=== PATIENT | male | born 1975 | race Native Hawaiian/Other Pacific Islander ===

== ENCOUNTER 2019-02-01 19:39 | Inpatient (IN) | payer MEDICAID, OTHER ==
[~2019-02-01] VITALS: Ht 170.2 cm; Wt 70.8 kg
--- NOTE | 2019-02-01 19:50 | NUR ---
PT BIBSELF C/O SOB, WORSE WHILE GOING UP THE STAIRS. PT O2 SAT 99% ON ROOM AIR. DENIES CP, DIZZINESS, HEADACHE, COUGH. PT AAOX4. RESPIRATIONS EVEN AND UNLABORED. SKIN WARM AND INTACT. NO ACUTE DISTRESS NOTED AT THIS TIME. PLACED ON MONITOR, WILL CONTINUE TO MONITOR
--- NOTE | 2019-02-01 20:00 | NUR ---
ER PA AT BEDSIDE FOR EVALUATION
--- NOTE | 2019-02-01 20:07 | NUR ---
SOLUTIONS CONSULTANT AT BEDSIDE FOR BLOOD DRAW
--- NOTE | 2019-02-01 20:18 | NUR ---
RADIOLOGY AT BEDSIDE FOR CXR
[2019-02-01 20:24] LABS: BASOPHILS # (AUTO) 0.1 /CMM (0.0-0.2); BASOPHILS % (AUTO) 1.4 % (0.0-2.0); LYMPHOCYTES # (AUTO) 0.7 /CMM (0.8-4.8); LYMPHOCYTES % (AUTO) 15.6 % (20.0-44.0); MEAN CORPUSCULAR HGB CONC 29 g/dl (31.0-36.0); MEAN CORPUSCULAR VOLUME 63 fL (80-96); MONOCYTES # (AUTO) 0.5 /CMM (0.1-1.30); MONOCYTES % (AUTO) 10.6 % (2.0-12.0); NEUTROPHILS # (AUTO) 3.2 /CMM (1.8-8.9); NEUTROPHILS % (AUTO) 67.4 % (43.0-81.0); PLATELET COUNT (AUTO) 290 /CMM (150-450); RED BLOOD CELL COUNT(AUTO) 2.94 MIL/uL (4.5-6.0); WHITE BLOOD COUNT (AUTO) 4.8 K/uL (4.3-11.0)
[2019-02-01 20:27] LABS: HEMATOCRIT 19 % (39-51); HEMOGLOBIN 5.4 g/dL (13.5-17.5)
[2019-02-01] MEDS ORDERED: IV NS 0.9% 1,000 ML BAG IV ONE (20:30)
[2019-02-01 20:47] LABS: CALCIUM, SERUM 7.9 mg/dL (8.5-10.1); CARBON DIOXIDE 24 mmol/L (21-32); CHLORIDE 105 mmol/L (98-107); CREATININE 0.9 mg/dL (0.6-1.3); GLUCOSE 125 mg/dL (74-106); POTASSIUM 3.5 mmol/L (3.5-5.1); SODIUM SERUM 137 mmol/L (136-145); UREA NITROGEN, BLOOD 9 mg/dL (7-18)
[2019-02-01 20:53] LABS: OCCULT BLOOD STOOL NEGATIVE (NEGATIVE)
[2019-02-01 20:59] LABS: EOSINOPHILS % (MANUAL) 4 % (0-4); LYMPHOCYTES % (MANUAL) 15 % (16-48); MONOCYTES % (MANUAL) 9 % (0-11.0); NEUTROPHILS % (MANUAL) 71 (42-76); REACTIVE LYMPHOCYTES 1 % (0-0)
[2019-02-01 21:00] LABS: B-TYPE NATRIURETIC PEPTIDE 45 PG/ML (0-125)
--- NOTE | 2019-02-01 22:09 | NUR ---
CALLED NURSING SUP FOR BED.
--- NOTE | 2019-02-01 22:22 | NUR ---
REPORT GIVEN TO RAJ EVANS.
[2019-02-01 23:00] VITALS: BP 145/95
[2019-02-01] MEDS ORDERED: ACETAMINOPHEN 325 MG TABLET PO PRN (23:00)
[2019-02-01] MEDS ORDERED: HYDROCODONE/APAP 5/325MG 1 EACH TABLET PO PRN (23:00)
[2019-02-01] MEDS ORDERED: MAGNESIUM HYDROXIDE 30 ML UDC PO PRN (23:00)
[2019-02-01] MEDS ORDERED: ONDANSETRON HCL/PF 4 MG/2 ML VIAL IVP PRN (23:00)
[2019-02-01] MEDS ORDERED: ZOLPIDEM TARTRATE 5 MG TABLET PO PRN (23:00)
[2019-02-01] MEDS ORDERED: Z GUARD REMEDY 2 OZ OINT TP PRN (23:00)
[2019-02-01] MEDS ORDERED: IV NS 0.9% 1,000 ML IV PRN (23:00)
--- NOTE | 2019-02-01 23:05 | NUR ---
PT TRANSFERRED PER ACLS PROTOCOL
--- NOTE | 2019-02-01 23:15 | NUR ---
ANESTHESIA DIRECTOR NOTE PATIENT RECEIVED FROM ER IN BED WITH FAMILY AT BED AT BEDSIDE. PATIENT IN BED A/P X 4 NO OUTWARD S/S OF DISTRESS. PATIENT DENIES CHEST PAIN, SOB, . PATIENT C/O MINOR FATIGUE. PATIENT ABLE TO AMBULATE TO BED GAIT STEADY. PATIENT HR SR ON THE MONITOR IN THE 90'S. PATIENT POC DISCUSSED WITH PATIENT AND GOALS DISCUSSED. CONSENT GIVEN TO PATIENT FOR BLOOD TRANSFUSION CONSENT SIGNED BY MILE CAMPUZANO AND PATIENT. CALL LIGHT INSTRUCTIONS GIVEN TO PATIENT, PATIENT VERBALIZE UNDERSTANDING. SAFETY PRECAUTIONS IN PLACE RN WILL CONTINUE TO JOJO
[2019-02-02] VITALS (16 sets, daily range): BP systolic 115–156; BP diastolic 69–94
--- NOTE | 2019-02-02 | NUR ---
BIOFUELS PROCESSING TECHNICIAN NOTE WHEN CONFIRMING PATIENT BLOOD TYPE PATIENT, STATES HE IS B NEGATIVE PER [employer] HX, CALLED BLOOD BANK TO CONFIRM TEST RESULTS, AND STATES "HE IS A VERY CLEAR B POS" PER PREVIOUS TYPE AND SCREEN RESULTS FROM ER . MILE JACKSON NOTIFIED AND BLOOD TRANSFUSION TO RESUME, PATIENT STATES OK
--- NOTE | 2019-02-02 00:16 | NUR ---
HISTORICAL SOCIETY DIRECTOR NOTE PATIENT TRANSFUSION STARTED V/S TAKEN RN WILL CONTINUE TO MONITOR.
[2019-02-02 00:19] LABS: HEMOGLOBIN 5.2 g/dL (13.5-17.5)
[2019-02-02 00:51] LABS: IRON, SERUM 12 ug/dl (50-175); TOTAL IRON BINDING CAPACITY 456 ug/dl (250-450)
--- NOTE | 2019-02-02 00:52 | NUR ---
BRAKE REPAIR MECHANIC NOTE NO TRANSFUSION REACTION NOTED AT THIS TIME RN WILL CONTINUE TO MONITOR.
[2019-02-02 06:45] LABS: BASOPHILS % (AUTO) 0.9 % (0.0-2.0); EOSINOPHILS % (AUTO) 4.5 % (0.0-6.0); HEMATOCRIT 22 % (39-51); LYMPHOCYTES # (AUTO) 0.5 /CMM (0.8-4.8); LYMPHOCYTES % (AUTO) 12.1 % (20.0-44.0); MEAN CORPUSCULAR HGB CONC 30 g/dl (31.0-36.0); MEAN CORPUSCULAR VOLUME 67 fL (80-96); MONOCYTES # (AUTO) 0.6 /CMM (0.1-1.30); MONOCYTES % (AUTO) 14.2 % (2.0-12.0); NEUTROPHILS # (AUTO) 2.8 /CMM (1.8-8.9); NEUTROPHILS % (AUTO) 68.3 % (43.0-81.0); PLATELET COUNT (AUTO) 241 /CMM (150-450); RED BLOOD CELL COUNT(AUTO) 3.22 MIL/uL (4.5-6.0); WHITE BLOOD COUNT (AUTO) 4.1 K/uL (4.3-11.0)
[2019-02-02 06:49] LABS: HEMOGLOBIN 6.4 g/dL (13.5-17.5)
--- NOTE | 2019-02-02 06:52 | NUR ---
MS RN NOTE CRITICAL LAB REPORTED, MILE CAMPUZANO NOTIFIED, NO RESPONSE YET, WILL ENDORSE TO AM SHIFT TO FOLLOW UP WITH AM .
[2019-02-02 06:58] LABS: CALCIUM, SERUM 7.8 mg/dL (8.5-10.1); CREATININE 0.8 mg/dL (0.6-1.3); PHOSPHORUS 3.5 mg/dL (2.5-4.9); POTASSIUM 3.8 mmol/L (3.5-5.1)
[2019-02-02 07:34] LABS: EOSINOPHILS % (MANUAL) 3 % (0-4); LYMPHOCYTES % (MANUAL) 15 % (16-48); MONOCYTES % (MANUAL) 12 % (0-11.0); NEUTROPHILS % (MANUAL) 70 (42-76)
--- NOTE | 2019-02-02 08:01 | NUR ---
RN OPENING NOTES PT IS ASLEEP IN BED. RECEIVED REPORT FROM GLASS EDGER RN. CONTACTED MD ABOUT CRITICAL VALUES AWAITING ORDERS. PT IS STABLE WITH EQUAL CHEST RISE BILATERALLY AND NO PAIN OBSERVED AT PRESENT MOMENT. BED IS LOCKED AND IN LOWEST POSITION WITH CALL LIGHT IN REACH WILL CONTINUE TO MONITOR.
--- NOTE | 2019-02-02 08:20 | NUR ---
RECEIVED ORDERS AND CARRIED THEM OUT.
--- NOTE | 2019-02-02 13:19 | NUR ---
PT FINISHED BLOOD TRANSFUSION DENIES ANY SOB OR PAIN. VITALS WNL. WILL CONTINUE TO MONITOR.
[2019-02-02 18:40] LABS: HEMOGLOBIN 7.8 g/dL (13.5-17.5)
--- NOTE | 2019-02-02 19:18 | NUR ---
RN CLOSING NOTES PT RESTING IN BED. DENIES PAIN OR SOB AT PRESENT MOMENT. PT IS A&OX4. PT HAS IV 18 GAUGE SL IN LAC. BED IS LOCKED AND IN LOWEST POSITION WITH CALL LIGHT IN REACH WILL ENDORSE ANABEL TO CRIMINAL INTELLIGENCE ANALYST RN.
--- NOTE | 2019-02-02 19:40 | NUR ---
RN MS OPENING NOTES, PATIENT IS ASLEEP IN BED, BUT EASILY AROUSABLE TO VERBAL STIMULI, A/OX4 ABLE TO VERBALIZED NEEDS AND CONCERNS, AT ROOM AIR BREATHING EVEN AND UNLABORED, NO SOB/ACUTE DISTRESS NOTED AT THIS TIME, DENIES ANY PAIN/DISCOMFORT AT THIS TIME, LEFT AC 18G IV ACCESS PATENT AND INTACT S/L, BED LOCKED AND IN LOWEST POSITION, CALL LIGHT W/I REACH WILL CONTINUE TO MONITOR CLOSELY.
[2019-02-02 21:19] LABS: APPEARANCE,URINE CLEAR (CLEAR); BILIRUBIN,URINE NEGATIVE (NEGATIVE); BLOOD, URINE NEGATIVE Ery/uL (NEGATIVE); COLOR,URINE YELLOW (YELLOW); KETONES,URINE NEGATIVE (NEGATIVE); LEUKOCYTE ESTERASE ,URINE NEGATIVE (NEGATIVE); NITRITE, URINE NEGATIVE (NEGATIVE); PH,URINE 7.5 (5.0-8.0); PROTEIN,URINE NEGATIVE (NEGATIVE); UGLUCOSE NEGATIVE (NEGATIVE); UROBILINOGEN,URINE 0.2 EU/dL (0.2)
[2019-02-03] VITALS: BP 143/82
[2019-02-03 04:00] VITALS: BP 130/79
[2019-02-03 06:26] LABS: BASOPHILS # (AUTO) 0.1 /CMM (0.0-0.2); BASOPHILS % (AUTO) 1.4 % (0.0-2.0); EOSINOPHILS % (AUTO) 4.5 % (0.0-6.0); HEMATOCRIT 26 % (39-51); HEMOGLOBIN 8.2 g/dL (13.5-17.5); LYMPHOCYTES # (AUTO) 0.8 /CMM (0.8-4.8); LYMPHOCYTES % (AUTO) 20.3 % (20.0-44.0); MEAN CORPUSCULAR HGB CONC 31 g/dl (31.0-36.0); MEAN CORPUSCULAR VOLUME 68 fL (80-96); MONOCYTES # (AUTO) 0.7 /CMM (0.1-1.30); MONOCYTES % (AUTO) 16.2 % (2.0-12.0); NEUTROPHILS # (AUTO) 2.3 /CMM (1.8-8.9); NEUTROPHILS % (AUTO) 57.6 % (43.0-81.0); PLATELET COUNT (AUTO) 244 /CMM (150-450); RED BLOOD CELL COUNT(AUTO) 3.83 MIL/uL (4.5-6.0)
[2019-02-03 06:48] LABS: ALBUMIN 3.1 g/dL (3.4-5.0); BILIRUBIN,TOTAL 0.3 mg/dL (0.2-1.0); CALCIUM, SERUM 8.1 mg/dL (8.5-10.1); CREATININE 0.9 mg/dL (0.6-1.3); POTASSIUM 3.7 mmol/L (3.5-5.1)
--- NOTE | 2019-02-03 06:56 | NUR ---
RN MS CLOSING NOTES, PATIENT SLEEPING AT THIS TIME, NO SOB/ACUTE DISTRESS NOTED, NO SIGNIFICANT CHANGE IN CONDITION DURING THE NIGHT, WILL ENDORSE CONTINUITY OF CARE TO ONCOMING NURSE.
--- NOTE | 2019-02-03 07:58 | NUR ---
MS RN OPENING NOTES RECEIVED PT LAYING IN BED W/ HOB KEPT ELEVATED. PT IS A/O X4, AFEBRILE. RESPIRATIONS ARE EVEN AND UNLABORED, NOT IN ANY ACUTE DISTRESS NOTED. PT DENIES ANY PAIN AT THIS TIME, NO C/O SOB, N/V. IV SITE TO LAC INTACT, NO INFILTRATION NOTED. DRESSING KEPT CLEAN AND DRY. SAFETY MEASURES ARE IN PLACE. INSTRUCTED PT TO USE CALL LIGHT WHEN ASSISTANCE IS NEEDED, CALL LIGHT IS LEFT WITHIN REACH. WILL MONITOR THROUGHOUT SHIFT FOR CONTINUITY OF CARE.
[2019-02-03 08:00] VITALS: BP 131/77
[2019-02-03 08:54] LABS: EOSINOPHILS % (MANUAL) 6 % (0-4); LYMPHOCYTES % (MANUAL) 20 % (16-48); MONOCYTES % (MANUAL) 15 % (0-11.0); NEUTROPHILS % (MANUAL) 59 (42-76)
[2019-02-03] MEDS ORDERED: SOD FERRIC GLUC 125 MG in IV NS 0.9% 100 ML IV SCH (14:00)
--- NOTE | 2019-02-03 14:09 | NUR ---
MS RN NOTES-- PT ABLE TO MAKE NEEDS KNOWN. NEEDS MET AND ANTICIPATED. PT DOES NOT APPEAR TO BE IN ANY ACUTE DISTRESS. SAFETY MEASURES ARE IN PLACE. CALL LIGHT IS LEFT WITHIN REACH. WILL CONTINUE TO MONITOR.
[2019-02-03 16:00] VITALS: BP 136/90
--- NOTE | 2019-02-03 18:30 | NUR ---
MS RN CLOSING NOTES ALL DUE MEDS GIVEN, NEEDS MET AND RENDERED. PT IS A/O X4, AFEBRILE. RESPIRATIONS ARE EVEN AND UNLABORED, NOT IN ANY ACUTE DISTRESS NOTED. DENIES ANY PAIN AT THIS TIME, NO C/O SOB, N/V. IV SITE TO LAC INTACT, NO INFILTRATION NOTED DRESSING KEPT CLEAN AND DRY. SAFETY MEASURES ARE IN PLACE. REMINDED PT TO USE CALL LIGHT WHEN ASSISTANCE IS NEEDED, CALL LIGHT IS LEFT WITHIN REACH. WILL ENDORSE TO NEXT SHIFT FOR CONTINUITY OF CARE.
[2019-02-03 20:00] VITALS: BP 143/97
--- NOTE | 2019-02-04 00:15 | NUR ---
RN NOTES RECEIVED REPORT FROM PREVIOUS RN FOR ANABEL. PATIENT SLEEPING & EASILY AROUSABLE TO NAME. A/O X4. DENIES ANY PAIN OR DISCOMFORT @ THIS TIME. INSTRUCTED TO CALL FOR ASSISTANCE.
[2019-02-04 04:00] VITALS: BP 151/109
[2019-02-04 06:37] LABS: BASOPHILS # (AUTO) 0.1 /CMM (0.0-0.2); BASOPHILS % (AUTO) 1.1 % (0.0-2.0); EOSINOPHILS % (AUTO) 4.1 % (0.0-6.0); HEMATOCRIT 30 % (39-51); HEMOGLOBIN 9.1 g/dL (13.5-17.5); LYMPHOCYTES % (AUTO) 16.3 % (20.0-44.0); MEAN CORPUSCULAR HGB CONC 31 g/dl (31.0-36.0); MEAN CORPUSCULAR VOLUME 70 fL (80-96); MONOCYTES # (AUTO) 0.8 /CMM (0.1-1.30); MONOCYTES % (AUTO) 12.9 % (2.0-12.0); NEUTROPHILS # (AUTO) 3.8 /CMM (1.8-8.9); NEUTROPHILS % (AUTO) 65.6 % (43.0-81.0); PLATELET COUNT (AUTO) 230 /CMM (150-450); RED BLOOD CELL COUNT(AUTO) 4.31 MIL/uL (4.5-6.0); WHITE BLOOD COUNT (AUTO) 5.8 K/uL (4.3-11.0)
[2019-02-04 07:24] LABS: CALCIUM, SERUM 8.8 mg/dL (8.5-10.1); CREATININE 0.9 mg/dL (0.6-1.3); MAGNESIUM 2.2 mg/dL (1.8-2.4); PHOSPHORUS 3.7 mg/dL (2.5-4.9); POTASSIUM 4.1 mmol/L (3.5-5.1)
--- NOTE | 2019-02-04 07:30 | NUR ---
MS RN NOTES PATIENT IN BED SLEEPING AROUSED WHEN NAME CALLED. PT IS A/OX4 . NO SOB OR DISCOMFORT NOTED AT THIS TIME. PT HAS LAC #18 SL PATENT. BED AT THE LOWEST POSITION LOCKED, CALL LIGHT WITHIN REACH. WILL CONTINUE TO MONITOR PT.
[2019-02-04 08:00] VITALS: BP 140/95
[2019-02-04 08:37] LABS: HIV SCRN 4G wRFX Non Reactive (Non Reactive)
[2019-02-04] MEDS ORDERED: FERR325T23 PO (10:54)
--- NOTE | 2019-02-04 12:27 | NUR ---
MS RN NOTES PT IS SITTING IN BED, A/OX4 . DC INSTRUCTION GIVEN TO PT. IV REMOVED. PT IS STABLE AND WILL DRIVE HIS OWN CAR FROM [facility]. INSTRUCTED TO HAVE A FAMILY MEMBER TO DRIVE HIM HOME AND HE REFUSED.
== END 2019-02-04 12:30 | disposition home or self-care (01) | DRG 663 ==
LOC: ER 19:43 → TELE-TD 22:12 → TELE1 23:11 → MEDSG1 23:12 → TELE1 23:14 → MEDSG1 02-02 06:24
PROVIDERS: ADMIT Nurse Practitioner Acute Care; ATTEND Nurse Practitioner Acute Care
PROC: 30233N1 Transfusion of Nonautologous Red Blood Cells into Peripheral Vein, Percutaneous Approach (ICD-10-PCS; principal; 2019-02-01)
DX: D50.9 Iron deficiency anemia, unspecified (principal); E44.1 Mild protein-calorie malnutrition; E78.1 Pure hyperglyceridemia; F15.10 Other stimulant abuse, uncomplicated
CPT/HCPCS: 36415; 71045-TC; 80048-TC; 80053-TC; 80061-TC; 80305; 81000-TC; 82272-TC; 83540-TC; 83735-TC; 83880; 84100-TC; 84484-TC; 85025-TC; 85027-TC; 85378-TC; 85730-TC; 86706; 86803; 86850-TC; 86921-TC; 87081-TC; 87086-TC; 87340; G0378; J2916; J7030; J7050; P9016-BL